=== PATIENT | female | born 1955 | race African-American/Black ===

== ENCOUNTER 2017-08-02 08:58 | Emergency (ER) | payer OTHER ==
[~2017-08-02] VITALS: Ht 165.1 cm; Wt 85.0 kg
[2017-08-02 10:42] VITALS: BP 144/79
== END 2017-08-02 10:43 | disposition home or self-care (01) ==
LOC: ER 09:10
DX: M54.6 Pain in thoracic spine (principal); I10 Essential (primary) hypertension; Z88.0 Allergy status to penicillin; Z88.2 Allergy status to sulfonamides; Z88.1 Allergy status to other antibiotic agents
CPT/HCPCS: 71045; 93005; 99284